=== PATIENT | female | born 1980 | race American Indian/Alaskan Native ===

== ENCOUNTER 2019-07-02 13:09 | Emergency (ER) | payer SELFPAY ==
[2019-07-02 14:13] VITALS: BP 113/67
--- NOTE | 2019-07-02 14:36 | Event Note ---
ED Screening Note Date of service: 07/02/19 Time: 14:34 ED Screening Note: 38 y/o female comes in for urinary frequency and dysuria time 2 day got worst last night. No vag d/c mild spotting. LMP 06/18/19. This initial assessment/diagnostic orders/clinical plan/treatment(s) is/are subject to change based on patients health status, clinical progression and re- assessment by fellow clinical providers in the ED. Further treatment and workup at subsequent clinical providers discretion. Patient/guardian urged not to elope from the ED as their condition may be serious if not clinically assessed and managed. Initial orders include:
[2019-07-02 15:16] LABS: Basophils % (Auto) 0.4 % (0.0-1.8); Eosinophils % (Auto) 0.5 % (0.0-4.3); Hematocrit 41.3 % (30.3-42.9); Hemoglobin 13.6 gm/dl (10.1-14.3); Lymphocytes # (Auto) 1.4 K/mm3 (1.2-5.4); Lymphocytes % (Auto) 14.4 % (13.4-35.0); Mean Corpuscular HGB Conc 33 % (30-34); Mean Corpuscular Volume 91 fl (79-97); Monocytes # (Auto) 0.8 K/mm3 (0.0-0.8); Monocytes % (Auto) 8.5 % (0.0-7.3); Platelet Count 236 K/mm3 (140-440); Red Blood Count 4.54 M/mm3 (3.65-5.03); Red Cell Distribution Width 14.7 % (13.2-15.2)
[2019-07-02 15:36] LABS: Albumin 3.9 g/dL (3.9-5); BUN/Creatinine Ratio 13; Blood Urea Nitrogen 8 mg/dL (7-17); Calcium 9.2 mg/dL (8.4-10.2); Hemolysis Index 93
[2019-07-02 15:39] LABS: Bilirubin,Urine NEG (Negative); Blood,Urine LG (Negative); Color,Urine Yellow (Yellow); Urobilinogen,Urine < 2.0 mg/dL (<2.0)
[2019-07-02 15:41] LABS: RBC,Urine > 182.0 /HPF (0.0-6.0); WBC,Urine > 182.0 /HPF (0.0-6.0)
[2019-07-02 15:42] LABS: HCG Qualitative,Urine Negative (Negative)
[2019-07-02 15:44] LABS: Alanine Aminotransferase 14 units/L (7-56)
[2019-07-02] MEDS ORDERED: NACL 0.9% 1000 ML 1,000 ML IV ONE (15:55)
[2019-07-02] MEDS ORDERED: ROCEPHIN/NS 1 GM/50 ML 1 GM/50 ML BAG IV ONE (15:55)
--- NOTE | 2019-07-02 17:14 | Emergency Department Report ---
HPI - General Chief Complaint: Abdominal Pain Time Seen by Provider: 07/02/19 14:33 ED Past Medical Hx - Past Medical History Previous Medical History?: Yes Hx Asthma: Yes - Surgical History Past Surgical History?: Yes Additional Surgical History: ovarian cyst removal - Social History Smoking Status: Never Smoker Substance Use Type: None - Medications Home Medications: Home Medications Medication Instructions Recorded Confirmed Last Taken Type Fluconazole [Diflucan TAB] 150 mg PO ONCE #1 tablet 07/02/19 Unknown Rx Ibuprofen [Motrin] 800 mg PO Q8HR PRN #30 tablet 07/02/19 Unknown Rx Ondansetron [Zofran Odt] 4 mg PO Q8HR PRN #10 tab.rapdis 07/02/19 Unknown Rx Sulfamethoxazole/Trimethoprim 1 each PO BID 10 Days tablet 07/02/19 Unknown Rx [Bactrim DS TAB] ED Review of Systems ROS: Stated complaint: LOWER BACK PAIN/EXTREME Other details as noted in HPI Comment: All other systems reviewed and negative Physical Exam - Physical Exam Vital Signs: Vital Signs 07/02/19 14:10 Temperature 99.1 F Pulse Rate 95 H Respiratory 16 Rate Blood Pressure 113/67 O2 Sat by Pulse 100 Oximetry ED Course Vital Signs 07/02/19 14:10 Temperature 99.1 F Pulse Rate 95 H Respiratory 16 Rate Blood Pressure 113/67 O2 Sat by Pulse 100 Oximetry ED Medical Decision Making - Lab Data Result diagrams: 07/02/19 14:51 07/02/19 14:51 - Radiology Data Radiology results: report reviewed, image reviewed - Medical Decision Making Lab Results 07/02/19 07/02/19 07/02/19 Range/Units 14:44 14:51 14:51 WBC 9.8 (4.5-11.0) K/mm3 RBC 4.54 (3.65-5.03) M/mm3 Hgb 13.6 (10.1-14.3) gm/dl Hct 41.3 (30.3-42.9) % MCV 91 (79-97) fl MCH 30 (28-32) pg MCHC 33 (30-34) % RDW 14.7 (13.2-15.2) % Plt Count 236 (140-440) K/mm3 Lymph % (Auto) 14.4 (13.4-35.0) % [place] % (Auto) 8.5 H (0.0-7.3) % Eos % (Auto) 0.5 (0.0-4.3) % Baso % (Auto) 0.4 (0.0-1.8) % Lymph # 1.4 (1.2-5.4) K/mm3 [place] # 0.8 (0.0-0.8) K/mm3 Eos # 0.0 (0.0-0.4) K/mm3 Baso # 0.0 (0.0-0.1) K/mm3 Seg Neutrophils % 76.2 H (40.0-70.0) % Seg Neutrophils # 7.5 (1.8-7.7) K/mm3 Sodium 134 L (137-145) mmol/L Potassium 4.9 (3.6-5.0) mmol/L Chloride 100.4 (98-107) mmol/L Carbon Dioxide 21 L (22-30) mmol/L Anion Gap 18 mmol/L BUN 8 (7-17) mg/dL Creatinine 0.6 L (0.7-1.2) mg/dL Estimated GFR > 60 ml/min BUN/Creatinine Ratio 13 % Glucose 81 (65-100) mg/dL Calcium 9.2 (8.4-10.2) mg/dL Total Bilirubin 0.30 (0.1-1.2) mg/dL AST 17 (5-40) units/L ALT 14 (7-56) units/L Alkaline Phosphatase 67 (35-129) units/L Total Protein 7.6 (6.3-8.2) g/dL Albumin 3.9 (3.9-5) g/dL Albumin/Globulin Ratio 1.1 % Urine Color Yellow (Yellow) Urine Turbidity Slightly-cloudy (Clear) Urine pH 8.0 H (5.0-7.0) Ur Specific [place] 1.011 (1.003-1.030) Urine Protein 100 mg/dl (Negative) mg/dL Urine Glucose (UA) Neg (Negative) mg/dL Urine Ketones Neg (Negative) mg/dL Urine Blood Lg (Negative) Urine Nitrite Neg (Negative) Urine Bilirubin Neg (Negative) Urine Urobilinogen < 2.0 (<2.0) mg/dL Ur Leukocyte Esterase Lg (Negative) Urine WBC (Auto) > 182.0 H (0.0-6.0) /HPF Urine RBC (Auto) > 182.0 (0.0-6.0) /HPF U Epithel Cells (Auto) 3.0 (0-13.0) /HPF Urine Yeast (Budding) 2+ /HPF Urine HCG, Qual Negative (Negative) Vital Signs 07/02/19 14:10 Temperature 99.1 F Pulse Rate 95 H Respiratory 16 Rate Blood Pressure 113/67 O2 Sat by Pulse 100 Oximetry Critical care attestation.: If time is entered above; I have spent that time in minutes in the direct care o f this critically ill patient, excluding procedure time. ED Disposition Clinical Impression: UTI (urinary tract infection) Disposition: TO HOME OR SELFCARE Is pt being admited?: No Does the pt Need Aspirin: No Condition: Stable Instructions: Urinary Tract Infection in Women (ED) Additional Instructions: MEDS ORDERED DIET AND ACTIVITY TOLERATED DRINK A LOT OF WATER URINATE AFTER SEX FOLLOW UP WITH PCP NEXT WEEK TO BE SURE THIS INFECTION GOES AWAY REFERRAL BELOW Referrals: PRIMARY CARE, [Primary Care Provider] - 3-5 Days NATALY LOPEZ MD [Staff Physician] - 3-5 Days Time of Disposition: 17:34
[2019-07-02] MEDS ORDERED: IBUPROFEN PO ONE (17:38)
[2019-07-02] MEDS ORDERED: DIFLUCAN PO ONE (18:38)
== END 2019-07-02 18:51 | disposition home or self-care (01) ==
LOC: ED 13:09
DX: N39.0 Urinary tract infection, site not specified (principal); J45.909 Unspecified asthma, uncomplicated
CPT/HCPCS: 36415; 80053; 81001; 81025; 85025; 96365; 99283; J0696; J7030

== ENCOUNTER 2019-10-26 11:50 | Emergency (ER) | payer SELFPAY ==
[2019-10-26 12:53] VITALS: BP 111/66
== END 2019-10-26 12:57 | disposition left against medical advice (07) ==
LOC: ED 11:50
DX: H57.89 Other specified disorders of eye and adnexa (principal); Z53.21 Procedure and treatment not carried out due to patient leaving prior to being seen by health care provider

== ENCOUNTER 2020-04-16 13:56 | Emergency (ER) | payer SELFPAY ==
--- NOTE | 2020-04-16 14:26 | Emergency Department Report ---
ED Female HPI - General Chief complaint: Vaginal Bleeding Stated complaint: POSS MISCARRAGE Time Seen by Provider: 04/16/20 14:23 Source: patient Mode of arrival: Wheelchair Limitations: No Limitations - History of Present Illness Initial comments: 39 you AA female comes to ER with vag bleeding in Took home preg test 2-3 weeks ago LMP 02-28-20 Did not see obgyn VS on admit to [facility] Complaint: vaginal bleeding -: Gradual, hour(s) Severity: mild Quality: cramping Are you Now?: Yes Associated Symptoms: vaginal bleeding - Related Data Sexually active: Yes Previous Rx's Medication Instructions Recorded Last Taken Type Fluconazole (Nf) [Diflucan TAB] 150 mg PO ONCE #1 tablet 07/02/19 Unknown Rx Ibuprofen [Motrin] 800 mg PO Q8HR PRN #30 tablet 07/02/19 Unknown Rx Ondansetron [Zofran Odt] 4 mg PO Q8HR PRN #10 tab.rapdis 07/02/19 Unknown Rx Sulfamethoxazole/Trimethoprim 1 each PO BID 10 Days tablet 07/02/19 Unknown Rx [Bactrim DS TAB] Allergies Allergy/AdvReac Type Severity Reaction Status Date / Time shellfish derived Allergy Swelling Verified 07/02/19 13:13 ED Review of Systems ROS: Stated complaint: POSS MISCARRAGE Other details as noted in HPI Comment: All other systems reviewed and negative ED Past Medical Hx - Past Medical History Previous Medical History?: Yes Hx Asthma: Yes - Surgical History Past Surgical History?: Yes Additional Surgical History: ovarian cyst removal - Family History Family history: no significant - Social History Smoking Status: Never Smoker Substance Use Type: None - Medications Home Medications: Home Medications Medication Instructions Recorded Confirmed Last Taken Type Fluconazole (Nf) [Diflucan TAB] 150 mg PO ONCE #1 tablet 07/02/19 Unknown Rx Ibuprofen [Motrin] 800 mg PO Q8HR PRN #30 tablet 07/02/19 Unknown Rx Ondansetron [Zofran Odt] 4 mg PO Q8HR PRN #10 tab.rapdis 07/02/19 Unknown Rx Sulfamethoxazole/Trimethoprim 1 each PO BID 10 Days tablet 07/02/19 Unknown Rx [Bactrim DS TAB] ED Physical Exam - General Limitations: No Limitations General appearance: alert, in no apparent distress - Head Head exam: Present: atraumatic, normocephalic - Eye Eye exam: Present: normal appearance - ENT ENT exam: Present: mucous membranes moist - Neck Neck exam: Present: normal inspection - Respiratory Respiratory exam: Present: normal lung sounds bilaterally. Absent: respiratory distress - Cardiovascular Cardiovascular Exam: Present: regular rate, normal rhythm. Absent: systolic murmur, diastolic murmur, rubs, gallop - GI/Abdominal GI/Abdominal exam: Present: soft, normal bowel sounds - Extremities Exam Extremities exam: Present: normal inspection - Back Exam Back exam: Present: normal inspection - Neurological Exam Neurological exam: Present: alert, oriented X3 - Psychiatric Psychiatric exam: Present: normal affect, normal mood - Skin Skin exam: Present: warm, dry, intact, normal color. Absent: rash ED Course Vital Signs 04/16/20 13:58 Temperature 98.2 F Pulse Rate 67 Respiratory 18 Rate Blood Pressure 105/52 O2 Sat by Pulse 100 Oximetry ED Medical Decision Making - Lab Data Result diagrams: 04/16/20 14:31 04/16/20 14:31 - Radiology Data Radiology results: report reviewed, image reviewed - Medical Decision Making I discussed the preliminary and final ultrasound reports with OBGYN who is on- call for [facility] today. Patient is to have interval follow-up for her beta quant and ultrasound. Beta quant noted to be about 756. Rh+. Vital signs are stable. Patient has been educated regarding interval follow-up of her ultrasound and hCG. Patient being discharged home on pelvic rest. Vital Signs 04/16/20 13:58 Temperature 98.2 F Pulse Rate 67 Respiratory 18 Rate Blood Pressure 105/52 O2 Sat by Pulse 100 Oximetry - Differential Diagnosis ro spont ab Critical care attestation.: If time is entered above; I have spent that time in minutes in the direct care of this critically ill patient, excluding procedure time. ED Disposition Clinical Impression: , Threatened Disposition: DC- TO HOME OR SELFCARE Is pt being admited?: No Does the pt Need Aspirin: No Condition: Stable Instructions: Threatened Miscarriage (ED) Additional Instructions: FOLLOW UP WITH DR MACHUCA IN 48-72 HOURS FOR RECHECK OF YOUR HCG AND ULTRASOUND NUMBER BELOW PELVIC REST TYLENOL FOR PAIN STAY WELL HYDRATED Referrals: ELVIRA MACHUCA MD [Staff Physician] - 3-5 Days Time of Disposition: 15:22
[2020-04-16 15:25] LABS: Basophils # (Auto) 0.1 K/mm3 (0.0-0.1); Basophils % (Auto) 0.8 % (0.0-1.8); Eosinophils # (Auto) 0.2 K/mm3 (0.0-0.4); Eosinophils % (Auto) 2.6 % (0.0-4.3); Hematocrit 41.7 % (30.3-42.9); Hemoglobin 13.5 gm/dl (10.1-14.3); Lymphocytes % (Auto) 30.5 % (13.4-35.0); Mean Corpuscular HGB Conc 32 % (30-34); Mean Corpuscular Volume 93 fl (79-97); Monocytes # (Auto) 0.5 K/mm3 (0.0-0.8); Platelet Count 238 K/mm3 (140-440); Red Blood Count 4.51 M/mm3 (3.65-5.03); Red Cell Distribution Width 13.5 % (13.2-15.2)
[2020-04-16 15:38] LABS: BUN/Creatinine Ratio 15; Blood Urea Nitrogen 9 mg/dL (7-17); Calcium 9.1 mg/dL (8.4-10.2); Hemolysis Index 30
[2020-04-16 15:51] LABS: Bilirubin,Urine NEG (Negative); Blood,Urine LG (Negative); Color,Urine Yellow (Yellow); Mucus,Urine FEW /HPF; Protein,Urine <15 mg/dL mg/dL (Negative); Urobilinogen,Urine < 2.0 mg/dL (<2.0); WBC,Urine < 1.0 /HPF (0.0-6.0)
[2020-04-16 17:50] VITALS: BP 116/59
== END 2020-04-16 16:55 | disposition home or self-care (01) ==
LOC: ED 13:56
DX: O99.511 Diseases of the respiratory system complicating pregnancy, first trimester (principal); O20.0 Threatened abortion; J45.909 Unspecified asthma, uncomplicated; Z98.890 Other specified postprocedural states; Z3A.01 Less than 8 weeks gestation of pregnancy; Z79.899 Other long term (current) drug therapy; Z91.013 Allergy to seafood
CPT/HCPCS: 36415; 76801; 76817; 80048; 81001; 84702; 85025; 86900; 86901